=== PATIENT | male | born 1990 | race Caucasian/White ===

== ENCOUNTER 2023-12-26 11:17 | Day surgery (SDC) | payer BC ==
[~2023-12-26] VITALS: Ht 190.5 cm; Wt 72.0 kg
[2023-12-26] VITALS (8 sets, daily range): BP systolic 130–155; BP diastolic 86–109; PULSE 63–77; TEMP 97–97.6
[~2023-12-26 11:17] MED LIST: LEVAQUIN 5500 MG/TA1 PO; LR 1,000 ML IV SCH; NAPROSYN; NO HOME MEDICATIONS; NORCO 325 MG-51 TAB PO
[2023-12-26] MEDS ORDERED: PRINIVIL5 MG PO (12:09)
[2023-12-26] MEDS ORDERED: ONE-A-DAY MEN'1 EAC5 PO (12:09)
[2023-12-26] MEDS ORDERED: K-DUR20 MEQ PO (12:12)
[2023-12-26] MEDS ORDERED: hydrALAZINE 20 MG/ML 1 ML VIAL IV ONE (13:00)
[2023-12-26 13:07] LABS: TRICYCLIC ANTIDEPRESS URINE NEGATIVE (NEGATIVE)
--- NOTE | 2023-12-26 13:10 | NUR ---
KEVIN GUILLEN CRNA INFORMED OF BP 155/109 WITH REPEAT OF 158/111. RECEIVED A VO TO GIVE HYDRALAZINE 10 MG IV. PATIENT MEDICATED PER ORDER. REPEAT BP 149/99
--- NOTE | 2023-12-26 13:20 | NUR ---
1145 Patient ambulatory to bay 3 with steady gait, breathing even and unlabored. Pt is alert and oriented, accompanied by his and son. Consents reviewed and signed by the patient. IV established. LR infusion via gravity at [facility]. Call light in reach. [place] provided.
[2023-12-26] MEDS ORDERED: fentaNYL 50 MCG/ML 5 ML VIAL ONE (13:52)
[2023-12-26] MEDS ORDERED: dexAMETHasone 10 MG/ML VIAL ONE (14:26)
[2023-12-26] MEDS ORDERED: NS 10 ML IV ONE (14:26)
[2023-12-26] MEDS ORDERED: Ketorolac 30 MG/ML VIAL ONE (14:26)
[2023-12-26] MEDS ORDERED: Ondansetron 4 MG/2 ML VIAL ONE (14:26)
[2023-12-26] MEDS ORDERED: Ondansetron 4 MG/2 ML VIAL IV PRN ×2 (15:00→15:30)
[2023-12-26] MEDS ORDERED: Bacitracin Topical Oint 30 GM TUBE TOP ONE (15:00)
[2023-12-26] MEDS ORDERED: droPERidol 2.5 MG/ML 2 ML VIAL IV PRN (15:00)
[2023-12-26] MEDS ORDERED: fentaNYL 50 MCG/ML 1 ML SYRINGE/VIAL [PACU/SDC ONLY] IV PRN (15:00)
[2023-12-26] MEDS ORDERED: Acetaminophen 325 MG TAB PO PRN (15:30)
[2023-12-26] MEDS ORDERED: Naloxone 0.4 MG/ML VIAL IV PRN (15:30)
--- NOTE | 2023-12-26 15:35 | NUR ---
PATIENT RETURNED TO BAY 3 VIA CART, ALERT AND ORIENTED X3. DENIES PAIN, NAUSEA AND SHORTNESS OF BREATH. BREATHING REGULAR AND UNLABORED ON ROOM AIR. SKIN WARM AND DRY. NURSE HANDOFF COMPLETED IN ROOM WITH INSPECTION OF SURGICAL SITE. VISIBLE COBAN PRESENT TO PENIS. DRESSING IS CLEAN, DRY AND INTACT. PATIENT HAS NO COMPLAINTS AND HAD JELLO WITH WATER TO DRINK. FOOD AND DRINK TOLERATED WELL. CALL LIGHT IN REACH. , TRAMAINE, PRESENT IN ROOM.
[2023-12-26] MEDS ORDERED: Acetaminophen 500 MG TAB PO SCH (16:18)
--- NOTE | 2023-12-26 16:58 | NUR ---
1622: PATIENT STATED HIS PENIS FELT "A LITTLE SORE". SEE EMAR FOR TYLENOL ORDERED AND ADMINISTERED. 1640: PATIENT AMBULATED TO RESTROOM WITH STEADY GAIT AND VOIDED WITHOUT DIFFICULTY. 1645: DISCHARGE TEACHING COMPLETED WITH PRINTED EDUCATION AND INSTRUCTIONS SENT HOME WITH PATIENT. BACITRACIN OINTMENT SENT HOME WITH PATIENT PER PROVIDER INSTRUCTIONS. PATIENT VERBALIZED UNDERSTANDING OF INSTRUCTIONS. 1648: IV REMOVED. GAUZE AND COBAN PLACED OVER SITE. 1658: PATIENT DISCHARGED HOME WITH [facility].
== END 2023-12-26 16:58 | disposition home or self-care (01) ==
LOC: SDCO 11:17
PROVIDERS: Nurse Anesthetist, Certified Registered
DX: A63.0 Anogenital (venereal) warts (principal); Z87.891 Personal history of nicotine dependence
CPT/HCPCS: J0360; J0690; J1100; J1885; J2405; J2704; J3010; J7120